=== PATIENT | female | born 1975 | race Caucasian/White ===

== ENCOUNTER 2023-03-15 12:37 | Day surgery (SDC) | payer BC ==
[~2023-03-15 12:37] MED LIST: Iopamidol-M 300 61% 15 ML VIAL ONE
== END 2023-03-15 14:45 | disposition home or self-care (01) ==
LOC: CSHRAD 12:37
PROVIDERS: ATTEND Nurse Practitioner Family
DX: M96.1 Postlaminectomy syndrome, not elsewhere classified (principal); I10 Essential (primary) hypertension; G47.33 Obstructive sleep apnea (adult) (pediatric); E78.2 Mixed hyperlipidemia; M25.561 Pain in right knee; M25.562 Pain in left knee; G89.4 Chronic pain syndrome; Z91.040 Latex allergy status; Z87.891 Personal history of nicotine dependence; Z90.49 Acquired absence of other specified parts of digestive tract; Z79.899 Other long term (current) drug therapy
CPT/HCPCS: 62304; 72132